=== PATIENT | female | born 1995 | race African-American/Black ===

== ENCOUNTER 2017-09-17 16:08 | Emergency (ER) | payer BC, OTHER ==
[~2017-09-17] VITALS: Ht 177.8 cm; Wt 48.0 kg
[~2017-09-17 16:08] MED LIST: Z.0.NO CURRENT MEDS
[2017-09-17 16:14] VITALS: BP 112/57; PULSE 102; RESP 20; TEMP 99.1; O2SAT 99
[2017-09-17] MEDS ORDERED: AUGM875T3 PO (16:53)
--- NOTE | 2017-09-17 16:53 | PD ---
HPI Chief Complaint: Bite or Sting Time Seen by Provider: 16:47 Travel History International Travel<30 days: No Contact w/Intl Traveler<30days: No Traveled to known affect area: No History of Present Illness HPI The patient was seen and examined in the presence of the nurse. This patient complains of dog bite. It occurred 45 minutes ago. The dog started to latch onto her hand but she pulled it away before he could finish any biting. Symptom severity is mild. No alleviating factors. PFSH Past Medical History Diminished Hearing: No Immunizations Current: Yes ?: Not Social History Alcohol Use: No Tobacco Use: No Substance Use: No Allergies-Medications (Allergen,Severity, Reaction): Coded Allergies: No Known Allergies (Verified Adverse Reaction, Unknown, 09/17/17) Reported Meds & Prescriptions Reported Meds & Active Scripts Active Reported No Current Meds (Miscellaneous Medication) Misc Review of Systems General / Constitutional: No: Fever Eyes: No: Visual changes HENT: No: Headaches Cardiovascular: No: Chest Pain or Discomfort Respiratory: No: Shortness of Breath Gastrointestinal: No: Abdominal Pain Genitourinary: No: Dysuria Musculoskeletal: No: Pain Skin: No Rash Neurologic: No: Weakness Psychiatric: No: Depression Endocrine: No: Polydipsia Hematologic/Lymphatic: No: Easy Bruising Physical Exam Narrative Psych: Normal mood and affect. Normal insight and judgment. SKIN: Focused skin assessment reveals no rash or ulcers. Skin is warm and dry. Palpation shows no induration or nodules. Hand: Right hand shows 2 abrasions on the dorsum. They are very superficial, barely broke the skin, do not look like puncture wounds Data Data Last Documented VS Vital Signs Date Time Temp Pulse Resp B/P (MAP) Pulse Ox O2 Delivery O2 Flow Rate FiO2 09/17/17 16:14 99.1 102 20 112/57 (75) 99 MDM Medical Decision Making Medical Screen Exam Complete: Yes Emergency Medical Condition: Yes Medical Record Reviewed: Yes Differential Diagnosis Dog bite, abrasion, contusion Narrative Course I have reviewed the patient's electronic medical record. Her tetanus is up-to-date Animal control but report filled out by registration They will follow-up to determine rabies need 5 days Augmentin prescribed Diagnosis Primary Impression: Dog bite of right hand Qualified Codes: S61.451A - Open bite of right hand, initial encounter; W54.0XXA - Bitten by dog, initial encounter Additional Instructions: Follow-up with animal control Med/Other Pt SpecificInfo: Prescription(s) given Disposition: 01 DISCHARGE HOME Condition: Stable James Hardy MD Sep 17, 2017 16:53
== END 2017-09-17 17:33 | disposition home or self-care (01) ==
LOC: NEPD 16:08
DX: S61.451A Open bite of right hand, initial encounter (principal); W54.0XXA Bitten by dog, initial encounter
CPT/HCPCS: 99283